=== PATIENT | female | born 1995 | race Caucasian/White ===

== ENCOUNTER 2017-03-06 09:10 | Emergency (ER) | payer OTHER ==
[2017-03-06 09:33] LABS: Urine Bilirubin Negative (NEGATIVE); Urine Blood 250 /ul (NEGATIVE); Urine Ketone Negative (NEGATIVE); Urine Nitrite Negative (NEGATIVE); Urine Protein >=300 mg/dL (NEGATIVE); Urine Specific Gravity 1.025 SP.GR. (1.005-1.010); Urine Urobilinogen Normal (NORMAL)
[2017-03-06 09:44] LABS: Urine Appearance Cloudy; Urine Bacteria 1+; Urine Color Yellow; Urine RBC 25-50 /hpf (0-5)
--- NOTE | 2017-03-06 10:06 | ERNOTE ---
ER Female HPI Stated Complaint: BLADDER INFECTION Presenting Symptoms: dysuria Time Seen by Provider: 03/06/17 09:56 Source: patient Exam Limitations: no limitations Immunizations: IMMUNIZATION HX Immunizations Up to Date Yes Allergies/Adverse Reactions: Allergies No Known Allergies Allergy (Verified 03/06/17 09:19) Home Medications: HOME MEDICATIONS Gabapentin [Neurontin (Gabapentin)] 300 mg PO TID 12/29/12 [Last Taken 07/01/14] Mycophenolate Mofetil [Cellcept] 1,000 mg PO BID 02/24/14 [Last Taken 07/01/14] Lacosamide [Vimpat] 200 mg PO BID 04/01/16 [Last Taken Unknown] Topiramate [Topamax] 100 mg PO BID 04/01/16 [Last Taken Unknown] Nitrofurantoin/Nitrofuran Mac [Macrobid] 100 mg PO Q12H #14 cap 03/06/17 [Last Taken Unknown] - History of Present Illness Narrative: Patient has had dysuria and increased urinary frequency for about three days. She is sexually active, last a week ago, taking birthcontrol pills, not late for her period, denies significant vaginal discharge, no fever, no back pain, no vomiting Quality: Present: mild Radiation: Present: none Prior Abdominal Problems: Present: none Review of Systems - Review of Systems Constitutional: Absent: recent illness, fever ENT: Absent: nasal drainage, sore throat Respiratory: Absent: shortness of breath, cough Cardiology: Absent: chest pain Gastrointestinal/Abdominal: Present: nausea. Absent: vomiting, diarrhea, abdominal pain Genitourinary: Present: See HPI, frequency, dysuria Musculoskeletal: Absent: back pain Neurological: Absent: headache - Patient's Past Medical History Patient History - Medical: Seizures, Other Patient History - Cardiac/Respiratory: No pertinent hx Patient History - Cancer: No Hx of Cancer Patient History - Surgical Procedures: T & A, Other Patient History - Other: None - Social History Psych History: No pertinent hx Smoking Status: Never smoker Have you smoked in the past 12 months: No - Immunizations Immunizations Up to Date: Yes Physical Exam - Physical Exam General Appearance: Present: wd/wn, alert, no apparent distress Respiratory: Present: no respiratory distress, normal breath sounds, no accessory muscle use, lungs clear Cardiovascular/Chest: Present: regular rate, rhythm Gastrointestinal/Abdominal: Present: nondistended, soft, tenderness - mild suprapubic Back Exam: Present: no CVA tenderness Neurological Exam: Present: alert, oriented, normal mood/affect Skin Exam: Present: normal color, warm/dry ED Progress - Vital Signs Patient's Vital Signs:: I have reviewed the patient's vital signs. Vital Signs: Vital Signs 03/06/17 09:15 Temperature 35.8 C L Pulse Rate 86 Respiratory 14 Rate Blood Pressure 130/93 O2 Sat by Pulse 98 Oximetry - Progress/Reassessment Chief Complaint: Genitourinary Problem Departure Clinical Impression: UTI (urinary tract infection) Qualifiers: Urinary tract infection type: acute cystitis Hematuria presence: with hematuria Qualified Code(s): N30.01 - Acute cystitis with hematuria - Departure Disposition: Home self-care Condition: Good Instructions: Urinary Tract Infection, Adult, [id number] Referrals: Ronald Brennan MD [Primary Care Provider] - Prescriptions: Nitrofurantoin/Nitrofuran Mac [Macrobid] 100 mg PO Q12H #14 cap
[2017-03-06 10:07] VITALS: BP 124/78
== END 2017-03-06 10:05 | disposition home or self-care (01) ==
LOC: ER 09:10
DX: N30.01 Acute cystitis with hematuria (principal)

== ENCOUNTER 2017-04-14 10:33 | Emergency (ER) | payer OTHER ==
[2017-04-14 10:44] VITALS: BP 117/72
[2017-04-14 10:56] LABS: Urine Bilirubin Negative (NEGATIVE); Urine Blood 50 /ul (NEGATIVE); Urine Ketone Negative (NEGATIVE); Urine Nitrite Negative (NEGATIVE); Urine Protein Negative (NEGATIVE); Urine Specific Gravity 1.015 SP.GR. (1.005-1.010); Urine Urobilinogen Normal (NORMAL)
[2017-04-14 11:03] LABS: Urine Appearance Cloudy; Urine Bacteria 2+; Urine Color Pale Yellow
--- NOTE | 2017-04-14 11:03 | ERNOTE ---
ER Female HPI Date of Service: 04/14/17 Stated Complaint: UTI Presenting Symptoms: dysuria Time Seen by Provider: 04/14/17 10:48 Source: patient, family, RN notes reviewed, past records Exam Limitations: other - Neurologic impairment Immunizations: IMMUNIZATION HX Immunizations Up to Date Yes History of Influenza Vaccine Yes Hx Pneumococcal Vaccination Yes Allergies/Adverse Reactions: Allergies No Known Allergies Allergy (Verified 04/14/17 10:44) Home Medications: HOME MEDICATIONS Gabapentin [Neurontin (Gabapentin)] 300 mg PO TID 12/29/12 [Last Taken 07/01/14] Mycophenolate Mofetil [Cellcept] 1,000 mg PO BID 02/24/14 [Last Taken 07/01/14] Lacosamide [Vimpat] 200 mg PO BID 04/01/16 [Last Taken Unknown] Topiramate [Topamax] 100 mg PO BID 04/01/16 [Last Taken Unknown] Norgestimate-Ethinyl Estradiol [Norg-Ethin Estra 0.25-0.035 mg] 1 each PO DAILY #28 tablet 04/14/17 [Last Taken Unknown] Sulfamethoxazole/Trimethoprim [Bactrim Ds] 1 tab PO BID #14 tab 04/14/17 [Last Taken Unknown] - History of Present Illness Narrative: 22 year old female brought to the ED by her mother for a possible UTI. She was treated for a UTI approximately 6 weeks ago. The culture grew e.coli. She thinks the symptoms resolved and then returned 2 weeks ago. She is having nausea , back pain, abdominal pain and dysuria. Her period is also late. She reports that her LMP was 10/ but her clinic chart states that it was 10/. She was taking an OCP, which was refilled when she was seen in gynecology a month ago, but she reports "they" took me off of it. She has seen neurology at the [facility] since she was seen in gynecology. She reports that she is supposed to have an IUD inserted when her menses begins. 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 Prior Abdominal Problems: Present: similar symptoms Sexual Barnard History: Present: less than 2 months ago, single partner Prior Treatment: Present: recently seen, treated by physician. Absent: currently on antibiotics Review of Systems - Review of Systems Constitutional: Present: fatigue, malaise. Absent: fever, chills EYE: Absent: no symptoms reported ENT: Absent: no symptoms reported Respiratory: Absent: no symptoms reported Cardiology: Absent: no symptoms reported Gastrointestinal/Abdominal: Present: nausea, abdominal pain. Absent: vomiting, diarrhea, constipation Genitourinary: Present: frequency, dysuria Musculoskeletal: Present: back pain. Absent: neck pain, joint pain Skin: Absent: rash, lesions Neurological: Present: seizure, pre-existing deficit. Absent: headache, dizziness/light-headedness Endocrine: Present: no symptoms reported Hematologic/Lymphatic: Present: no symptoms reported Psych: Present: no symptoms reported - Patient's Past Medical History Patient History - Medical: Seizures, Other - "Brain lesions" of unknown etiology Patient History - Cardiac/Respiratory: No pertinent hx Patient History - Cancer: No Hx of Cancer Patient History - Surgical Procedures: T & A, Other - Brain biopsy Patient History - Other: None LMP (Calendar): 02/26/17 - Social History Living Situations: home Psych History: No pertinent hx Smoking Status: Current every day smoker Alcohol Use: none Drug Use: none - Immunizations Immunizations Up to Date: Yes Hx Pneumococcal Vaccination: Yes History of Influenza Vaccine: Yes Physical Exam - Physical Exam General Appearance: Present: alert, no apparent distress, thin Neck: Present: normal inspection, nontender, supple Respiratory: Present: no respiratory distress, normal breath sounds, no accessory muscle use, lungs clear Cardiovascular/Chest: Present: regular rate, rhythm, no murmur Gastrointestinal/Abdominal: Present: normal bowel sounds, nondistended, soft, tenderness - Diffuse, mild Back Exam: Present: normal range of motion, no vertebral tenderness, CVA tenderness (R), CVA tenderness (L) Extremity Exam: Present: normal inspection, normal range of motion, no edema Neurological Exam: Present: alert, other - Flat affect, poor eye contact, very poor historian Skin Exam: Present: warm/dry, pallor ED Progress - Results and Orders Patient's Lab Results:: I have reviewed the patient's lab results. - Vital Signs Patient's Vital Signs:: I have reviewed the patient's vital signs. Vital Signs: Vital Signs 04/14/17 10:36 Temperature 37.6 C H Pulse Rate 67 Respiratory 16 Rate Blood Pressure 117/72 O2 Sat by Pulse 99 Oximetry - Progress/Reassessment Chief Complaint: Urinary Tract Problems Progress:: Unchanged Plan - Plan Plan: Will treat UTI with Bactrim as she has tolerated this in the past Negative test. Discussed at length with the patient and her mother the necessity of her being on some form of contraception due to her routine medications being teratinogenic. It is unclear how her OCP's were discontinued since a supply for 1 year was sent to her pharmacy on 03/[address] Lopez. I will prescribe a month of her OCP for her to start now while the confusion over her refills is sorted out. I am not sure that the patient comprehends the seriousness of the situation related to her medications and an unplanned . Departure Clinical Impression: Irregular menses, Long-term use of high-risk medication, Contraceptive education UTI (urinary tract infection) Qualifiers: Urinary tract infection type: site unspecified Hematuria presence: without hematuria Qualified Code(s): N39.0 - Urinary tract infection, site not specified - Departure Disposition: Home Follow Up Needed Condition: Stable Instructions: Urinary Tract Infection, Adult, [id number], Oral Contraception Information Additional Instructions: RESTART YOUR CONTROL PILLS MITZI - CONTACT DR. LOPEZ'S OFFICE REGARDING REFILLS DRINK LOTS OF WATER HAVE YOUR URINE RECHECKED AFTER FINISHING THE ANTIBIOTIC Prescriptions: Norgestimate-Ethinyl Estradiol [Norg-Ethin Estra 0.25-0.035 mg] 1 each PO DAILY #28 tablet Sulfamethoxazole/Trimethoprim [Bactrim Ds] 1 tab PO BID #14 tab
== END 2017-04-14 11:40 | disposition home or self-care (01) ==
LOC: ER 10:33
DX: N92.6 Irregular menstruation, unspecified (principal); Z79.899 Other long term (current) drug therapy; N39.0 Urinary tract infection, site not specified; R56.9 Unspecified convulsions; F17.200 Nicotine dependence, unspecified, uncomplicated